=== PATIENT | male | born 1995 | race Caucasian/White ===

== ENCOUNTER 2019-02-12 20:42 | Emergency (ER) | payer OTHER ==
[~2019-02-12] VITALS: Ht 175.3 cm; Wt 80.9 kg
[2019-02-12 21:19] VITALS: BP 137/93; PULSE 92; TEMP 98.2
== END 2019-02-12 21:30 | disposition home or self-care (01) ==
LOC: COL.ER 20:42
DX: T15.11XA Foreign body in conjunctival sac, right eye, initial encounter (principal); F41.9 Anxiety disorder, unspecified; X58.XXXA Exposure to other specified factors, initial encounter